=== PATIENT | male | born 1995 | race Caucasian/White ===

== ENCOUNTER 2018-01-31 13:01 | Emergency (ER) | payer MEDICAID ==
[~2018-01-31] VITALS: Ht 165.1 cm; Wt 68.5 kg
[2018-01-31 13:19] VITALS: Ht 165.1 cm; Wt 68.5 kg
[2018-01-31 14:28] VITALS: BP 125/67
== END 2018-01-31 14:53 | disposition home or self-care (01) ==
LOC: ED 13:01
DX: S43.005A Unspecified dislocation of left shoulder joint, initial encounter (principal); Y93.72 Activity, wrestling; Y92.89 Other specified places as the place of occurrence of the external cause; Y99.8 Other external cause status